=== PATIENT | female | born 1960 | race Caucasian/White ===

== ENCOUNTER 2018-10-20 07:58 | Day surgery (SDC) | payer OTHER ==
[2018-10-20] MEDS ORDERED: ceFAZolin 2 GM/50 ML 2 GM/50 ML BAG IV ONE (08:22)
--- NOTE | 2018-10-20 08:34 | ANESTHESIA ---
Pre-Anesthesia VS, & Labs - Diagnosis Left femoral hernia - Procedure Lap left femoral hernia repair Vital Signs: 138/96, 70, 20, 98% - NPO >8 hours - Is Patient ?: No Home Medications and Allergies Home Medications: Ambulatory Orders Carditone 1 tab PO DAILY 10/17/18 Carditone 1 tab PO DAILY 10/17/18 Allergies/Adverse Reactions: Allergies Allergy/AdvReac Type Severity Reaction Status Date / Time latex Allergy Rash Verified 10/17/18 09:34 Anes History & Medical History - Anesthetic History Anesthesia Complications: reports: No previous complications - Medical History Cardiovascular: reports: None Pulmonary: reports: None Gastrointestinal: reports: None Urinary: reports: None Musculoskeletal: reports: Osteoarthritis Endocrine/Autoimmune: reports: None Skin: reports: Eczema - Surgical History Orthopedic: Arthroscopic surgery Exam General: Alert Dental: WNL Mouth Opening: Greater than 4 Fingerbreadths Mallampati classification: II Thyromental Distance: greater than 6 cm Respiratory: Lungs clear Cardiovascular: Regular rate, Normal S1, Normal S2 Plan Anesthesia Type: General Consent for Procedure(s) Verified and Reviewed: Yes Code Status: Attempt Resuscitation ASA classification: 2-Mild systemic disease Is this case an emergency?: No
[2018-10-20] MEDS ORDERED: LACTATED RINGERS 1,000 ML IV ONE ×2 (08:35→11:24)
[2018-10-20] MEDS ORDERED: LIDOCAINE-PF 4% 5 ML AMP SUBQ ONE (10:15)
[2018-10-20] MEDS ORDERED: NEOSTIGMINE 1 MG/1 ML 10 ML MDV IVP ONE (10:15)
[2018-10-20] MEDS ORDERED: KETOROLAC 30 MG/ML VIAL IVP ONE (10:15)
[2018-10-20] MEDS ORDERED: MIDAZOLAM 2 MG/2 ML VIAL IVP ONE (10:15)
[2018-10-20] MEDS ORDERED: ROCURONIUM 50 MG/5 ML VIAL IVP ONE (10:15)
[2018-10-20] MEDS ORDERED: ONDANSETRON 4 MG/2 ML VIAL IVP ONE (10:15)
[2018-10-20] MEDS ORDERED: DEXAMETHASONE 4 MG/ML VIAL IVP ONE (10:15)
[2018-10-20] MEDS ORDERED: GLYCOPYRROLATE 1 MG/5 ML VIAL IVP ONE (10:15)
[2018-10-20] MEDS ORDERED: PROPOFOL 200 MG/20 ML VIAL IVP ONE (10:15)
[2018-10-20] MEDS ORDERED: METOPROLOL 5 MG/5 ML VIAL IVP ONE (10:15)
[2018-10-20] MEDS ORDERED: ceFAZolin 1 GM VIAL IR ONE (10:22)
[2018-10-20] MEDS ORDERED: BUPIVACAINE 0.5%-EPI 1:200000 PF 30 ML VIAL SUBQ ONE ×2 (10:22)
[2018-10-20] MEDS ORDERED: ACETAMINOPHEN 325 MG TABLET PO PRN (11:24)
[2018-10-20] MEDS ORDERED: IBUPROFEN 600 MG TABLET PO PRN (11:24)
[2018-10-20] MEDS ORDERED: oxyCODONE 5 MG TABLET PO PRN (11:24)
[2018-10-20] MEDS ORDERED: ONDANSETRON 4 MG/2 ML VIAL IVP PRN (11:24)
[2018-10-20] MEDS ORDERED: ACETAMINOPHEN 1,000 MG/100 ML 100 ML IV ONE (11:38)
[2018-10-20 12:20] VITALS: BP 119/86
--- NOTE | 2018-10-20 12:51 | OPERATIVE REPORT ---
DATE OF SERVICE: 10/20/2018 Physician: Sg Powell MD PREOPERATIVE DIAGNOSIS: Symptomatic left groin hernia. POSTOPERATIVE DIAGNOSIS: Symptomatic left femoral hernia. PROCEDURE PERFORMED: Laparoscopic repair of left femoral hernia. ANESTHESIA: General endotracheal by Andres Couch CRNA. SURGEON: Sg Powell MD. ESTIMATED BLOOD LOSS: 5 mL COMPLICATIONS: None. DRAINS: None. FINDINGS: A left femoral hernia was present. There was no evidence of direct or indirect left ingui nal hernia. INDICATIONS: Patient is a 58-year-old woman with a history of a slowly enlarging lump in her left gr oin. Examination revealed a reducible mass adjacent to the inguinal ligament. She was felt to be mejia ffering from a symptomatic left groin hernia, most likely a femoral hernia, and advised to undergo la paroscopic repair. TECHNIQUE: After informed consent, the patient was taken to the operating room where she was placed under general endotracheal anesthesia. Preoperative preparation included application of sequential c mcc compression boots and administration of 2 grams of cefazolin intravenously within an hour of the incision. Her lower abdomen and groin was prepared with ChloraPrep solution and draped in the usual sterile fashion. A 2 cm long infraumbilical midline incision was made, carried down into the subcutaneous tissues. He mostasis was achieved with electrocautery. The anterior fascia was incised vertically for a distance of 2 cm immediately to the left of the midline, exposing the left rectus muscle, which was retracted laterally, exposing the rectus sheath posterior layer. A dissecting balloon was then inserted and d irected towards the pubis. The dissecting balloon was then insufflated and held in place for 3 minut es, then deflated and replaced with a structural balloon and 10 mm trocar. A 10 mm 30-degree [place] telescope was then inserted after pneumopreperitoneum was achieved with carbon dioxide. Two additio nal 5 mm ports were placed in the lower midline. Instruments were passed and the preperitoneal space was carefully dissected, exposing Jostin's ligament, the epigastric vessels, the nuchal ligament, an d the direct femoral and indirect spaces. Dissection was carried out laterally, almost to the level of the umbilicus. Findings were as noted above. The femoral hernia contents were easily reduced and the hernia sac reduced as well. A search for ass ociated indirect hernia was made and none was identified. After hemostasis was assured, a left mediu m lightweight 3DMax mesh was soaked in antibiotic solution containing a gram of Ancef per liter and t hen placed into the preperitoneal space, where it was expanded, oriented appropriately, and secured i n place with the tacking device, securing it using the SECURESTRAP tacker, securing it to Jostin's li gament x2 and then along the upper border of the mesh on either side of the epigastric vessels, and l aterally where the tacker could be palpated against the abdominal wall. No tacks were placed in the inferolateral quadrant to avoid any nerve injury. The mesh was seen to nicely expand against the ant erior abdominal wall. The hernia sac was tacked to the mid portion of the mesh. A rent in the perit oneum was identified and closed with several 5 mm clips. Pneumopreperitoneum was allowed to escape a nd the peritoneal sac was seen to expand nicely against the mesh. Instruments and cannulas were removed under direct vision. Pneumopreperitoneum was allowed to escape and the incisions were closed in layers using continuous 0 Vicryl to reapproximate the midline fasci a at the infraumbilical site, followed by 3-0 Vicryl for subcutaneous tissue at the infraumbilical si te, followed by 4-0 Monocryl subcuticular skin closure at all the port sites. Then, 20 mL of 0.5% Ma rcaine with epinephrine was infiltrated into the incisions to assist in postoperative analgesia. The n, 4-0 Monocryl was used to close all the sites of the subcuticular skin closure, followed by Dermabo nd. Anesthesia was terminated and the patient was transferred to the recovery room in satisfactory c ondition. Sponge and needle counts were correct x2. No drains were used. TD: 10/20/2018 11:46
== END 2018-10-20 07:59 | disposition home or self-care (01) ==
LOC: SDS 07:58
PROVIDERS: ATTEND Internal Medicine Gastroenterology
PROC: 0YU84JZ Supplement Left Femoral Region with Synthetic Substitute, Percutaneous Endoscopic Approach (ICD-10-PCS; principal; 2018-10-20 10:15)
DX: K41.90 Unilateral femoral hernia, without obstruction or gangrene, not specified as recurrent (principal); Z87.891 Personal history of nicotine dependence
CPT/HCPCS: 49659; A9270; C1781; J0131; J0690; J7120

== ENCOUNTER 2018-12-06 10:21 | Outpatient (CLI) | payer OTHER | END 2018-12-06 10:22 | disposition critical access hospital (66) | LOC: EMS 10:21 | PROVIDERS: ATTEND Surgery | DX: S69.91XA Unspecified injury of right wrist, hand and finger(s), initial encounter (principal); W01.0XXA Fall on same level from slipping, tripping and stumbling without subsequent striking against object, initial encounter; Y93.01 Activity, walking, marching and hiking; Y92.830 Public park as the place of occurrence of the external cause ==

== ENCOUNTER 2018-12-06 10:48 | Emergency (ER) | payer OTHER ==
[2018-12-06] MEDS ORDERED: ONDANSETRON 4 MG/2 ML VIAL IVP STA (11:05)
[2018-12-06] MEDS ORDERED: HYDROmorphone 1 MG/ML CARPUJECT IVP STA (11:05)
--- NOTE | 2018-12-06 11:06 | ED Physician Documentation ---
PD HPI UPPER EXT INJURY - Stated complaint Stated Complaint: R WRIST PX - Chief complaint Chief Complaint: Ext Problem - History obtained from History obtained from: Patient, Family - History of Present Illness Location: Right, Wrist Type of injury: Fall Where injury occurred: Home Timing - onset: Today Timing - duration: Minutes Timing - details: Abrupt onset, Still present Improved by: Rest, Immobilization Worsened by: Moving, Palpating Associated symptoms: Swelling. No: Weakness, Numbness, Discolored Contributing factors: No: Anticoagulated Similar symptoms before: Has not had sx before Recently seen: Not recently seen - Additonal information Additional information: 58-year-old female was on a walk this morning when 2 dogs collided in front of her knocked her over and she fell onto an outstretched right hand. She has deformity to the wrist and is come to the emergency department by ambulance with a fractured wrist. She has some pain to her left anterior thigh without evidence of bruising and she is able to bear weight on this. Review of Systems Constitutional: denies: Fever Eyes: denies: Decreased vision Ears: denies: Ear pain Nose: denies: Congestion Throat: denies: Sore throat Respiratory: denies: Cough GI: denies: Vomiting Musculoskeletal: reports: Joint pain, Joint swelling Neurologic: denies: Generalized weakness, Focal weakness, Numbness PD PAST MEDICAL HISTORY - Past Medical History Past Medical History: No Cardiovascular: None Respiratory: None Endocrine/Autoimmune: None GI: None : None HEENT: Other Psych: Anxiety, Claustrophobia Musculoskeletal: Osteoarthritis Derm: Eczema - Past Surgical History Past Surgical History: Yes Ortho: Arthroscopic surgery - Present Medications Home Medications: Ambulatory Orders Medication Instructions Recorded Confirmed Carditone 1 tab PO DAILY 10/17/18 oxyCODONE [Roxicodone] 5 mg PO Q6H PRN #10 tablet 10/20/18 Hydrocodone/Acetaminophen 1 - 2 each PO Q6H PRN #14 tablet 12/06/18 [Hydrocodon-Acetaminophen 5-325] Ondansetron Odt [Zofran] 4 mg TL Q6H PRN #10 tablet 12/06/18 - Allergies Allergies/Adverse Reactions: Allergies Allergy/AdvReac Type Severity Reaction Status Date / Time latex Allergy Rash Verified 12/06/18 10:55 - Social History Does the pt smoke?: No Smoking Status: Never smoker Does the pt drink ETOH?: No Does the pt have substance abuse?: Yes Substance Use and Type: Marijuana - Immunizations Immunizations are current?: Yes PD ED PE NORMAL - Vitals Vital signs reviewed: Yes (hypertensive ) - General General: Alert and oriented X 3, Well developed/nourished, Other (appears to be in pain and tolerating it. ) - HEENT HEENT: Atraumatic, PERRL, EOMI - Respiratory Respiratory: No respiratory distress - Derm Derm: Normal color, Warm and dry, No rash - Extremities Extremities: Other (There is obvious fracture deformity to the right wrist with a dinner fork deformity. Distal n/v is intact. ) - Neuro Neuro: Alert and oriented X 3, swamper 2-12 intact, No motor deficit, No sensory deficit, Normal speech Eye Opening: Spontaneous Motor: Obeys Commands Verbal: Oriented GCS Score: 15 - Psych Psych: Normal mood, Normal affect Results - Vitals Vitals: Vital Signs - 24 hr 12/06/18 12/06/18 12/06/18 10:52 12:25 12:54 Temperature 37.5 C Heart Rate 86 77 65 Respiratory 18 15 14 Rate Blood Pressure 139/87 H 153/105 H 137/95 H O2 Saturation 99 95 100 12/06/18 12/06/18 13:18 13:24 Temperature Heart Rate 98 68 Respiratory 14 14 Rate Blood Pressure 129/82 H O2 Saturation 98 Oxygen O2 Source Room air - Rads (name of study) wrist R Radiology: Prelim report reviewed (Impression: 1. Acute, displaced ulnar styloid avulsion. 2. Acute, comminuted distal right radial fracture with probable intra-articular extension and 35 degrees apex volar angulation.), EMP read indepedently, See rad report post reduction Radiology: Prelim report reviewed (Impression: Status post reduction of right distal radial fracture with significantly improved angulation between the fracture fragments. Again seen is displaced fracture of the styloid process of the right ulna.), EMP read indepedently, See rad report Procedures - Splint (location) wrist R Splint applied by: Tech Type of splint: Fiberglass, Sugar tong Other: Patient tolerated well, No complications, Neurovascular intact, Good alignment, Sling provided - Reduction Body part reduced: Right, Wrist Fracture or dislocation: Fracture Anesthesia: Conscious sedation, Dilaudid, Propofol Reduction aftercare: NV intact, Xray confirms reduction, Alignment improved, Splint applied, Sling, Patient tolerated well - Procedural sedation Sedation prep: Informed consent, Time out completed, Last meal (am), PE performed, AHA 1 - healthy Sedation medications: dilaudid, propofol, given by MD Patient status during sedation: Responds to tactile, Vitals remained stable, Maintained airway, Recovered uneventfully Sedation recovery: Recovered uneventfully, Back to baseline Time in sedation (Minutes): 6 PD MEDICAL DECISION MAKING - ED course Complexity details: reviewed results, re-evaluated patient, considered differential, d/w patient, d/w family, d/w lean process deployment consultant (Jolie consulted 12:42 ) ED course: 58 y/o female with an angulated right radius fracture has reduction done in the ED with propofal with good results. She will follow up with ortho for casting. Departure - Departure Disposition: 01 Home, Self Care Clinical Impression: Right wrist fracture Qualifiers: Encounter type: initial encounter Fracture type: closed Qualified Code(s): S62.101A - Fracture of unspecified carpal bone, right wrist, initial encounter for closed fracture Condition: Stable Instructions: ED Fx Wrist General Follow-Up: Seth Ugalde MD [Primary Care Provider] - [facility] [Provider Group] Prescriptions: Hydrocodone/Acetaminophen [Hydrocodon-Acetaminophen 5-325] 1 - 2 each PO Q6H PRN #14 tablet PRN Reason: pain Ondansetron Odt [Zofran] 4 mg TL Q6H PRN #10 tablet PRN Reason: Nausea / Vomiting Comments: you will need to call the orthopedic doctors this week for casting.
--- NOTE | 2018-12-06 11:46 | XRAY Report ---
Reason: Trauma Procedure Date: 12/06/2018 Accession Number: [id number] / [id number] Procedure: XR - Wrist 4 View RT CPT Code: FULL RESULT: EXAM: RIGHT WRIST RADIOGRAPHY EXAM DATE: 12/06/2018 11:11 AM. CLINICAL HISTORY: Trauma. Right wrist deformity after tripping over dogs. COMPARISON: None. TECHNIQUE: 4 views. FINDINGS: Bones: Displaced acute ulnar styloid avulsion. Acute, comminuted distal right radial fracture with probable intra-articular extension and 35 degree apex volar angulation. Joints: Normal. No subluxations. Soft Tissues: Right wrist soft tissue swelling. IMPRESSION: 1. Acute, displaced ulnar styloid avulsion. 2. Acute, comminuted distal right radial fracture with probable intra-articular extension and 35 degree apex volar angulation. RADIA
[2018-12-06] MEDS ORDERED: KETOROLAC 30 MG/ML VIAL IVP STA (12:07)
[2018-12-06] MEDS ORDERED: PROPOFOL 200 MG/20 ML VIAL IVP STA (12:47)
--- NOTE | 2018-12-06 13:50 | XRAY Report ---
Reason: post reduction Procedure Date: 12/06/2018 Accession Number: [id number] / [id number] Procedure: XR - Wrist 2 View RT CPT Code: FULL RESULT: EXAM: RIGHT WRIST RADIOGRAPHY EXAM DATE: 12/06/2018 01:39 PM. CLINICAL HISTORY: Post reduction. COMPARISON: WRIST 4 VIEW RT 12/06/2018 11:03 AM. TECHNIQUE: 3 views. FINDINGS: Overlying cast with slightly suboptimal assessment. Status post reduction of right distal radial fracture with significantly improved angulation between the fracture fragments. Also seen is displaced fracture of the styloid process of right ulna. Articulation between the radiocarpal joint is maintained. IMPRESSION: Status post reduction of right distal radial fracture with significantly improved angulation between the fracture fragments. Again seen is displaced fracture of the styloid process of right ulna. RADIA
[2018-12-06 14:04] VITALS: BP 140/81
== END 2018-12-06 14:16 | disposition home or self-care (01) ==
LOC: EDUNIT# → ED 10:48
DX: S52.501A Unspecified fracture of the lower end of right radius, initial encounter for closed fracture (principal); S52.611A Displaced fracture of right ulna styloid process, initial encounter for closed fracture; M79.652 Pain in left thigh; W54.1XXA Struck by dog, initial encounter; Y93.01 Activity, walking, marching and hiking; Y92.009 Unspecified place in unspecified non-institutional (private) residence as the place of occurrence of the external cause
CPT/HCPCS: 25605; 73100; 73110; 94770; 96374; 96375; 99283; J1170; 25560

== ENCOUNTER 2018-12-07 12:11 | Emergency (ER) | payer OTHER ==
[2018-12-07] MEDS ORDERED: MELOXICAM 7.5 MG TABLET PO STA (14:24)
--- NOTE | 2018-12-07 14:26 | ED Physician Documentation ---
History of Present Illness - Stated complaint Stated Complaint: HIP PX - Chief complaint Chief Complaint: Ext Problem - History obtained from History obtained from: Patient, Family - History of Present Illness Timing: Today Pain level max: 8 Pain level now: 7 Improved by: nothing Worsened by: nothing - Additonal information Additional information: 58-year-old female presents to the emergency department with several issues, the first is she had a left femoral hernia repair approximately 6 weeks ago And has had swelling at the site ever since.. She sustained a fall at a dog park yesterday, this was splinted for the fracture in the right wrist. The splint felt tight so they unwrapped it upon arrival to the emergency department. She states that since the fall of the swelling to the left groin has become larger and she is concerned that she may have ruined the operation.She also has constipation. Had been taking hydrocodone for the wrist but states that it makes her constipated. Review of Systems Constitutional: denies: Fever, Chills Respiratory: denies: Cough GI: denies: Nausea, Vomiting Skin: denies: Rash Musculoskeletal: denies: Neck pain, Back pain Neurologic: denies: Focal weakness, Numbness, Headache PD PAST MEDICAL HISTORY - Past Medical History Cardiovascular: None Respiratory: None Endocrine/Autoimmune: None GI: None : None HEENT: Other Psych: Anxiety, Claustrophobia Musculoskeletal: Osteoarthritis Derm: Eczema - Past Surgical History Past Surgical History: Yes Ortho: Arthroscopic surgery - Present Medications Home Medications: Ambulatory Orders Medication Instructions Recorded Confirmed Carditone 1 tab PO DAILY 10/17/18 oxyCODONE [Roxicodone] 5 mg PO Q6H PRN #10 tablet 10/20/18 Hydrocodone/Acetaminophen 1 - 2 each PO Q6H PRN #14 tablet 12/06/18 [Hydrocodon-Acetaminophen 5-325] Ondansetron Odt [Zofran] 4 mg TL Q6H PRN #10 tablet 12/06/18 Meloxicam [Mobic] 7.5 mg PO BID PRN #20 tablet 12/07/18 Polyethylene Glycol 3350 [Miralax] 17 gm PO DAILY PRN #1 bottle 12/07/18 - Allergies Allergies/Adverse Reactions: Allergies Allergy/AdvReac Type Severity Reaction Status Date / Time latex Allergy Rash Verified 12/06/18 10:55 - Social History Does the pt smoke?: No Smoking Status: Never smoker Does the pt drink ETOH?: No Does the pt have substance abuse?: Yes Substance Use and Type: Marijuana - Immunizations Immunizations are current?: Yes PD ED PE NORMAL - Vitals Vital signs reviewed: Yes - General General: Alert and oriented X 3, No acute distress - HEENT HEENT: Moist mucous membranes - Neck Neck: Supple, no meningeal sign - Cardiac Cardiac: RRR - Respiratory Respiratory: No respiratory distress, Clear bilaterally - Abdomen Abdomen: Soft, Non tender, Non distended - Derm Derm: Warm and dry - Extremities Extremities: Other (R arm in a sugartong splint. NVI. splint loosened and rewrapped. Palable hernia in the left femoral area, reduced easily. ) - Neuro Neuro: Alert and oriented X 3 - Psych Psych: Normal mood, Normal affect Results - Vitals Vitals: Vital Signs - 24 hr 12/07/18 12/07/18 12/07/18 12:13 14:36 14:39 Temperature 36 C L Heart Rate 77 79 66 Respiratory 18 16 18 Rate Blood Pressure 165/110 H 141/100 H 143/90 H O2 Saturation 100 97 96 Oxygen O2 Source Room air PD MEDICAL DECISION MAKING - ED course Complexity details: reviewed results, re-evaluated patient, considered differential, d/w patient ED course: Splint was loosened and then rewrapped. We will trial her on meloxicam for pain to avoid opiate-induced constipation. There does appear to be a hernia still in the left groin. We will follow-up with her surgeon for this. Patient and family counseled regarding signs and symptoms for which I believe and urgent re- evaluation would be necessary. Patient with good understanding of and agreement to plan and is comfortable going home at this time This document was made in part using voice recognition software. While efforts are made to proofread this document, sound alike and grammatical errors may occur. Departure - Departure Disposition: 01 Home, Self Care Clinical Impression: Hip strain Qualifiers: Encounter type: initial encounter Laterality: left Qualified Code(s): S76.012A - Strain of muscle, fascia and tendon of left hip, initial encounter Constipation Qualifiers: Constipation type: unspecified constipation type Qualified Code(s): K59.00 - Constipation, unspecified Condition: Good Instructions: ED Constipation Follow-Up: Seth Ugalde MD [Primary Care Provider] - Within 3 Days Sg Powell MD [Provider Admit Priv/Credential] - Within 1 week Prescriptions: Meloxicam [Mobic] 7.5 mg PO BID PRN #20 tablet PRN Reason: Pain Polyethylene Glycol 3350 [Miralax] 17 gm PO DAILY PRN #1 bottle PRN Reason: Constipation Comments: We will try changing you from hydrocodone to meloxicam to see if this prevents your constipation. You should follow-up with Dr. Powell to reevaluate your mesh hernia site. Return if you worsen. Discharge Date/Time: 12/07/18 14:45
[2018-12-07 14:39] VITALS: BP 143/90
== END 2018-12-07 14:45 | disposition home or self-care (01) ==
LOC: ED 12:11
DX: S76.012A Strain of muscle, fascia and tendon of left hip, initial encounter (principal); W54.1XXA Struck by dog, initial encounter; Y92.830 Public park as the place of occurrence of the external cause; R19.09 Other intra-abdominal and pelvic swelling, mass and lump; K59.00 Constipation, unspecified; Z98.890 Other specified postprocedural states; S62.101D Fracture of unspecified carpal bone, right wrist, subsequent encounter for fracture with routine healing
CPT/HCPCS: 99283; A9270

== ENCOUNTER 2018-12-12 16:19 | Outpatient (CLI) | payer OTHER ==
[2018-12-12] MEDS ORDERED: IOVERSOL 320 50 ML VIAL ONE (16:31)
[2018-12-12] MEDS ORDERED: IOVERSOL 320 100 ML VIAL IVP ONE ×3 (16:31→17:45)
[2018-12-12 16:51] LABS: CREATININE 0.8 mg/dL (0.4-1.0)
[2018-12-12] MEDS ORDERED: IOVERSOL 320 50 ML VIAL PO ONE (17:45)
--- NOTE | 2018-12-12 19:19 | CT Report ---
Reason: GROIN MASS LEFT,GROIN PAIN LEFT Procedure Date: 12/12/2018 Accession Number: [id number] / [id number] Procedure: CT - Abdomen/Pelvis W CPT Code: FULL RESULT: EXAM: CT ABDOMEN AND PELVIS EXAM DATE: 12/12/2018 05:34 PM. CLINICAL HISTORY: Groin mass left, groin pain left. Hernia repair left lower quadrant 7 weeks ago, fall one week ago. Pain and swelling left lower quadrant. COMPARISONS: WRIST 2 VIEW RT 12/06/2018 1:20 PM. TECHNIQUE: Routine helical CT imaging was performed through the abdomen and pelvis. IV contrast: Optiray 320 80 ML. Enteric contrast: Yes. Reconstructions: Coronal and sagittal. In accordance with CT protocol optimization, one or more of the following dose reduction techniques were utilized for this exam: automated exposure control, adjustment of mA and/or KV based on patient size, or use of iterative reconstructive technique. FINDINGS: Lung bases: Linear opacities in the bilateral lower lobes, suspect atelectasis or scarring. There are 3 seen in the right hepatic lobe, the more superior mass measures 3.7 x 3 cm. Just inferior to this is another mass measuring 1 x 1.5 cm. More inferiorly at the lateral aspect of the right hepatic lobe, there is a mass measuring 3.9 x 2.7 cm. These masses have peripheral nodular enhancement with central hypodensities, most likely represent hemangiomas but these are not fully characterized. Gallbladder: Unremarkable. Bile ducts: Unremarkable. Pancreas: Unremarkable. Spleen: Unremarkable. Adrenals: Unremarkable. Kidneys: Left upper pole renal calculus measuring 3 mm. No hydronephrosis. Bowel: Moderate amount of stool in the ascending colon. Gas distended redundant transverse colon. No definite acute bowel findings are seen. No evidence for bowel obstruction.. No free fluid or free air. Visualized portions of the appendix appear within normal limits. Pelvis: Enlarged myomatous uterus with multiple uterine fibroids present including calcification of fibroids. There is protrusion of part of the rectum through a defect in the pelvic floor musculature measuring 2.5 cm on coronal image #28, this herniated portion of the rectum extends into the left ischiorectal fossa, measures 3.7 x 2.8 cm. The bladder is unremarkable. There is a fluid collection seen in the left inguinal region measuring 5.8 x 3.2 cm on coronal image #6. Hounsfield units are 15. This most likely represents a postoperative seroma at the site of the left inguinal hernia repair. No definite evidence for recurrent hernia. Bones: No acute bone findings are seen. Vasculature: No acute findings. IMPRESSION: 1. Three liver masses with the appearance most suggestive for liver hemangiomas, however these are not fully characterized. An ultrasound, MRI or CT liver mass protocol could be obtained to further evaluate. 2. Left upper pole renal calculus, nonobstructing. 3. Myomatous uterus. 4. Left perineal hernia. See above. 5.There is a fluid collection seen in the left inguinal region measuring 5.8 x 3.2 cm. This most likely represents a postoperative seroma at the site of the left inguinal hernia repair. No definite evidence for recurrent hernia. 6. See above. RADIA The call report notification system was initiated by Dr. Shirin Edmondson at 06:49 PM on 12/12/2018. The above call report findings were discussed with Dr. Vides by Dr. Shirin Edmondson at 07:11 PM on 12/12/2018.
== END 2018-12-12 16:20 | disposition home or self-care (01) ==
LOC: DI 16:19
PROVIDERS: ATTEND Internal Medicine Gastroenterology
DX: R19.09 Other intra-abdominal and pelvic swelling, mass and lump (principal); R10.32 Left lower quadrant pain; R16.0 Hepatomegaly, not elsewhere classified
CPT/HCPCS: 36415; 74177; 82565

== ENCOUNTER 2018-12-12 20:32 | Outpatient (CLI) | payer OTHER | END 2018-12-12 20:33 | disposition home or self-care (01) | LOC: EMS 20:32 | PROVIDERS: ATTEND Surgery | DX: R10.32 Left lower quadrant pain (principal) | CPT/HCPCS: A0425; A0427 ==

== ENCOUNTER 2018-12-12 20:47 | Emergency (ER) | payer OTHER ==
--- NOTE | 2018-12-12 21:58 | ED Physician Documentation ---
PD HPI ABD PAIN - Stated complaint Stated Complaint: ABD PAIN - Chief complaint Chief Complaint: Abd Pain - History obtained from History obtained from: Patient - History of Present Illness Timing - details: Abrupt onset Quality: Pain Location: Other (left groin) Improved by: Laying still Worsened by: Palpation Associated symptoms: Constipation. No: Fever, Nausea, Vomiting, Diarrhea Recently seen: Clinic, Emergency Dept - Additional information Additional information: patient underwent left inguinal hernia repair 10/20/18. Patient says she has been having episodic left groin pain and swelling past few weeks including earlier tonight for which she was BIBA to ED. She says she saw her surgeon yesterday and outpatient CT was ordered. CT A/P was performed earlier this afternoon. She had improvement in symptoms en route with IV Fentanyl given by medics. She was evaluated two other times in this ED this month, once for similar symptoms and other visit involved RUE fracture. Review of Systems Constitutional: denies: Fever, Chills, Sweats Cardiac: reports: Reviewed and negative Respiratory: reports: Reviewed and negative GI: reports: Abdominal Pain. denies: Nausea, Vomiting : denies: Dysuria, Frequency PD PAST MEDICAL HISTORY - Past Medical History Past Medical History: Yes Cardiovascular: None Respiratory: None Endocrine/Autoimmune: None GI: None : None HEENT: Other Psych: Anxiety, Claustrophobia Musculoskeletal: Osteoarthritis Derm: Eczema - Past Surgical History Past Surgical History: Yes Ortho: Arthroscopic surgery - Present Medications Home Medications: Ambulatory Orders Medication Instructions Recorded Confirmed Carditone 1 tab PO DAILY 10/17/18 oxyCODONE [Roxicodone] 5 mg PO Q6H PRN #10 tablet 10/20/18 Hydrocodone/Acetaminophen 1 - 2 each PO Q6H PRN #14 tablet 12/06/18 [Hydrocodon-Acetaminophen 5-325] Ondansetron Odt [Zofran] 4 mg TL Q6H PRN #10 tablet 12/06/18 Meloxicam [Mobic] 7.5 mg PO BID PRN #20 tablet 12/07/18 Polyethylene Glycol 3350 [Miralax] 17 gm PO DAILY PRN #1 bottle 12/07/18 - Allergies Allergies/Adverse Reactions: Allergies Allergy/AdvReac Type Severity Reaction Status Date / Time latex Allergy Rash Verified 12/06/18 10:55 - Social History Does the pt smoke?: No Smoking Status: Never smoker Does the pt drink ETOH?: No Does the pt have substance abuse?: Yes - Immunizations Immunizations are current?: Yes - POLST Patient has POLST: No PD ED PE NORMAL - Vitals Vital signs reviewed: Yes - General General: Alert and oriented X 3, No acute distress, Well developed/nourished - HEENT HEENT: Moist mucous membranes - Cardiac Cardiac: RRR, No murmur - Respiratory Respiratory: No respiratory distress, Clear bilaterally - Abdomen Abdomen: Normal bowel sounds, Soft, Non tender, Non distended, Other (no visible nor palpable masses in abdomen or left groin. abdomen and left inguinal area are nontender) - Back Back: No CVA TTP - Derm Derm: Normal color, Warm and dry - Extremities Extremities: No edema Results - Vitals Vitals: Vital Signs - 24 hr 12/12/18 12/12/18 12/12/18 20:49 22:53 23:49 Temperature 36.5 C 36.7 C 37.0 C Heart Rate 81 58 L 56 L Respiratory 18 16 18 Rate Blood Pressure 169/114 H 141/98 H 133/93 H O2 Saturation 100 100 94 Oxygen O2 Source Room air PD MEDICAL DECISION MAKING - ED course Complexity details: reviewed old records, re-evaluated patient, considered differential, d/w patient, d/w family ED course: CT A/P performed earlier this afternoon reveals seroma at recent surgical site. Also noted are myomatous uterus, left perineal hernia, nonobstructing left renal calulus, and liver masses ("most suggestive for liver hemangiomas", per radiologist's reading). Patient is certain she has had either CT A/P or MRI A/P (possibly both) at [facility] in the past, but I am unable to find any imaging studies on PACS except for today's CT and xrays of RUE 12/06. She says she has also been evaluated at and [facility] in the past. was contacted for previous records, but no previous records were found. [facility] only has pelvic US from 06/11/16. I thus do not have previous images for comparative purposes (except for pelvic US; I reviewed the reading that was faxed from [facility] and this showed myomatous uterus and left groin "cystic structure"). I reviewed with patient the results of today's CT including all of the above findings. She is in NAD during ED stay, has an unremarkable abd. exam, is able to ambulate without apparent difficulty or assistance. I d/w Dr. Vides regarding the CT findings and he agrees patient is appropriate for d/c and outpatient f/u. Patient and express understanding of the results, the plan for discharge, and express comfort with plan for d/c home. Departure - Departure Disposition: Home, Self Care Clinical Impression: Abdominal pain Qualifiers: Abdominal location: left lower quadrant Qualified Code(s): R10.32 - Left lower quadrant pain Condition: Good Instructions: ED Abdominal Pain Unkn Cause Follow-Up: Seth Ugalde MD [Primary Care Provider] - Sg Powell MD [Provider Admit Priv/Credential] - Discharge Date/Time: 12/13/18 00:11
[2018-12-12 23:51] VITALS: BP 133/93
== END 2018-12-13 00:11 | disposition home or self-care (01) ==
LOC: EDUNIT# → ED 20:47
DX: R10.32 Left lower quadrant pain (principal); L76.34 Postprocedural seroma of skin and subcutaneous tissue following other procedure; Y83.8 Other surgical procedures as the cause of abnormal reaction of the patient, or of later complication, without mention of misadventure at the time of the procedure; R16.0 Hepatomegaly, not elsewhere classified; R19.09 Other intra-abdominal and pelvic swelling, mass and lump; Z01.812 Encounter for preprocedural laboratory examination
CPT/HCPCS: 36415; 74177; 82565; 99283; Q9967

== ENCOUNTER 2020-03-23 11:51 | Outpatient (CLI) | payer OTHER | END 2020-03-23 11:52 | disposition critical access hospital (66) | LOC: EMS 11:51 | PROVIDERS: ATTEND Surgery | DX: S81.852A Open bite, left lower leg, initial encounter (principal); W54.0XXA Bitten by dog, initial encounter; Y92.830 Public park as the place of occurrence of the external cause | CPT/HCPCS: A0425; A0428 ==

== ENCOUNTER 2020-03-25 11:51 | Outpatient (CLI) | payer OTHER | END 2020-03-25 11:52 | disposition EMS.NT | LOC: EMS 11:51 | PROVIDERS: ATTEND Surgery | DX: R58 Hemorrhage, not elsewhere classified (principal) ==

== ENCOUNTER 2020-03-25 12:46 | Outpatient (CLI) | payer OTHER | END 2020-03-25 12:47 | disposition critical access hospital (66) | LOC: EMS 12:46 | PROVIDERS: ATTEND Surgery | DX: S81.852A Open bite, left lower leg, initial encounter (principal); W54.0XXA Bitten by dog, initial encounter | CPT/HCPCS: A0425; A0429 ==

== ENCOUNTER 2020-03-25 13:01 | Emergency (ER) | payer OTHER ==
[2020-03-25] MEDS ORDERED: LIDOCAINE-EPINEPH-TETRACAINE 3 ML SYRINGE TOP STA (13:13)
--- NOTE | 2020-03-25 13:15 | ED Physician Documentation ---
History of Present Illness - Stated complaint Stated Complaint: DOG BITE - Chief complaint Chief Complaint: Laceration - History obtained from History obtained from: Patient - History of Present Illness Timing: How many days ago (2) Pain level max: 0 Pain level now: 0 - Additonal information Additional information: 59 year old female with dog bite to the L calf 2 days ago. states the scab peeled off yesterday when she was changing her bandages and has been bleeding today. Nothing makes it better or worse. Not on anticoagulants. Review of Systems Constitutional: denies: Fever, Chills GI: denies: Nausea, Vomiting, Diarrhea Skin: denies: Rash Musculoskeletal: denies: Neck pain, Back pain Neurologic: denies: Headache PD PAST MEDICAL HISTORY - Past Medical History Past Medical History: Yes Cardiovascular: None Respiratory: None Neuro: None Endocrine/Autoimmune: None GI: None [employer]: None : None HEENT: None, Other Psych: Anxiety, Claustrophobia Musculoskeletal: Osteoarthritis Derm: Eczema - Past Surgical History Past Surgical History: Yes Ortho: Arthroscopic surgery - Present Medications Home Medications: Ambulatory Orders Medication Instructions Recorded Confirmed Carditone 1 tab PO DAILY 10/17/18 oxyCODONE [Roxicodone] 5 mg PO Q6H PRN #10 tablet 10/20/18 Hydrocodone/Acetaminophen 1 - 2 each PO Q6H PRN #14 tablet 12/06/18 [Hydrocodon-Acetaminophen 5-325] Ondansetron Odt [Zofran] 4 mg TL Q6H PRN #10 tablet 12/06/18 Meloxicam [Mobic] 7.5 mg PO BID PRN #20 tablet 12/07/18 Polyethylene Glycol 3350 [Miralax] 17 gm PO DAILY PRN #1 bottle 12/07/18 Amox/Clav 875/125 [Augmentin] 1 each PO Q12H #6 tablet 03/23/20 - Allergies Allergies/Adverse Reactions: Allergies Allergy/AdvReac Type Severity Reaction Status Date / Time latex Allergy Rash Verified 03/25/20 13:07 - Social History Does the pt smoke?: No Smoking Status: Never smoker Does the pt drink ETOH?: No Does the pt have substance abuse?: Yes - Immunizations Immunizations are current?: No - POLST Patient has POLST: No PD ED PE NORMAL - Vitals Vital signs reviewed: Yes - General General: Alert and oriented X 3, No acute distress - HEENT HEENT: Moist mucous membranes - Neck Neck: Supple, no meningeal sign - Cardiac Cardiac: RRR - Derm Derm: Warm and dry - Extremities Extremities: Other (small puncture to the L calf, bleeding. no signs of infection) - Neuro Neuro: Alert and oriented X 3 Results - Vitals Vitals: Vital Signs - 24 hr 03/25/20 03/25/20 13:07 14:25 Temperature 36.6 C Heart Rate 88 73 Respiratory 16 16 Rate Blood Pressure 140/100 H 124/86 H O2 Saturation 98 Oxygen O2 Source Room air PD MEDICAL DECISION MAKING - ED course Complexity details: reviewed results, re-evaluated patient, considered differential, d/w patient ED course: Let was applied to the area. Bleeding resolved. Mepitel was placed, the wound was redressed with bacitracin and Kerlix. Patient counseled regarding signs and symptoms for which I believe and urgent re-evaluation would be necessary. Patient with good understanding of and agreement to plan and is comfortable going home at this time This document was made in part using voice recognition software. While efforts are made to proofread this document, sound alike and grammatical errors may occur. Departure - Departure Disposition: 01 Home, Self Care Clinical Impression: Dog bite Qualifiers: Encounter type: initial encounter Qualified Code(s): W54.0XXA - Bitten by dog, initial encounter Condition: Good Instructions: ED Bite Animal General Follow-Up: Seth Ugalde MD [Primary Care Provider] - Within 3 Days Comments: You worsen. Follow-up with your doctor for further care. Remove the Coban in approximately 1 to 2 hours. Keep the Kerlix in place. The Mepitel should stay in place for approximately 5 to 7 days. Discharge Date/Time: 03/25/20 14:26
[2020-03-25] MEDS ORDERED: LIDOCAINE 1%-EPI 1:100000 20 ML MDV SUBQ STA (13:43)
[2020-03-25 14:37] VITALS: BP 124/86
== END 2020-03-25 14:26 | disposition home or self-care (01) ==
LOC: EDUNIT# → ED 13:01
DX: S81.852A Open bite, left lower leg, initial encounter (principal); W54.0XXA Bitten by dog, initial encounter
CPT/HCPCS: 99282; 99283